=== PATIENT | male | born 1980 | race Caucasian/White ===

== ENCOUNTER 2020-10-31 12:19 | Emergency (ER) | payer BC, SELFPAY ==
--- NOTE | ~2020-10-31 | XR_ITS ---
EXAMINATION: XR CHEST CLINICAL INFORMATION: Palpitations COMPARISON: None TECHNIQUE: Frontal view of the chest was obtained. FINDINGS: Lungs are well expanded. Mild diffuse thickening of bronchial gotti is suspected. A linear, streaky opacity in the right lower lung zone has the appearance of mild atelectasis. No evidence of airspace consolidation, edema or pleural effusion. Cardiac silhouette is normal size and contour. Bones are normal. XR/XR chest 1V IMPRESSION: * Cardiac silhouette is normal. No pulmonary vascular congestion or edema. * Mild thickening of bronchial gotti is suspected. Question if there is any history of reactive airway disease, smoking or asthma.
--- NOTE | 2020-10-31 07:59 | ECG_ITS ---
Test Reason : ELEVATED TROP Blood Pressure : / mmHG Vent. Rate : 081 BPM Atrial Rate : 081 BPM P-R Int : 156 ms QRS Dur : 096 ms QT Int : 384 ms P-R-T Axes : 067 005 025 degrees QTc Int : 446 ms Normal sinus rhythm Nonspecific T wave changes. Borderline ECG When compared with ECG of 31-OCT-2020 18:01, No significant change was found Referred By: Yoel Maria Electronically Signed By:Abilio Zimmerman
--- NOTE | 2020-10-31 12:25 | ECG_ITS ---
Test Reason : TACHYCARDIA Blood Pressure : / mmHG Vent. Rate : 131 BPM Atrial Rate : 131 BPM P-R Int : 138 ms QRS Dur : 088 ms QT Int : 390 ms P-R-T Axes : 066 056 051 degrees QTc Int : 575 ms Sinus tachycardia with Premature atrial complexes Post infarct (cited on or before 31-OCT-2020) Abnormal ECG No previous ECGs available Referred By: Leila Soto Electronically Signed By:Abilio Zimmerman
[2020-10-31] MEDS: LORazepam 2 MG/ML VIAL IVPUSH ×2 (12:29→12:54)
[2020-10-31] MEDS: 0.9 % Sodium Chloride 1,000 ML 999 ML IVCONT (12:30)
[2020-10-31 12:34] VITALS: BP 133/83; PULSE 123; PULSE 160; RESP 18; TEMP 37.3; O2SAT 97; O2SAT 99; BMI 29.0
--- NOTE | 2020-10-31 12:41 | ED.ARRPALP ---
HPI - Arrhythmia/Palpitations General Chief Complaint: ETOH/Substance Use Stated Complaint: tachy after drug use Time Seen by Provider: 10/31/20 12:24 Source: patient and EMS Mode of arrival: EMS Limitations: no limitations History of Present Illness HPI narrative: 40 years old male came in for evaluation of palpitation and feeling anxious. Patient admitted to abuse multiple drugs at friend's house at 04:00 he used meth, GHB, Ritalin (5 mg tablets he use for ADH he crushes and sniff it), use Viagra for recreational purpose. Patient was driving back home when he started to feel anxious, starts to have palpitation, hyperventilation, stiffness of his hands and legs. Arrived to the hospital by EMS. Related Data Allergies Allergy/AdvReac Type Severity Reaction Status Date / Time No Known Allergies Allergy Verified 10/31/20 12:24 Review of Systems Review of Systems: All other systems are reviewed and are negative Constitutional: Reports as per HPI and Reports no additional constitutional complaints Eyes: Reports as per HPI and Reports no additional eye complaints Reports system reviewed and no additional complaints, except as documented Cardiovascular: Reports as per HPI and Reports no additional cardiovascular complaints Respiratory: Reports as per HPI and Reports no additional respiratory complaints Gastrointestinal: Reports as per HPI and Reports no additional gastrointestinal complaints Genitourinary: Reports no additional female genitourinary complaints Musculoskeletal: Reports no additional musculoskeletal complaints Skin/Breast: Reports system reviewed and no additional complaints, except as docu Psychiatric: Reports no additional psychiatric complaints Endocrine: Reports no additional endocrine complaints Hematologic/Lymphatic: Reports no additional hematologic/lymphatic complaints Allergic/Immunologic: Reports no additional allergic/immunologic complaints Reports system reviewed and no additional complaints, except as documented and Reports Abnormal speech present [facility] Social History Social History Alcohol intake: current Alcohol intake frequency: 0-2 drinks per day Alcohol type: beer and wine Smoking Status: Light tobacco smoker Use of substances other than those prescribed or required for medical reasons: Yes Substance Use Type: Marijuana, Methamphetamine, Other and Prescription Drugs Substance Use Type Other:: Ritalin Substance Use Frequency: Daily Advance Directives: No Advance Directives Information Provided: No Physical Exam Vital Signs: Vital Signs: Last Vital Signs Temp 99.1 F 10/31/20 14:12 Pulse 109 H 10/31/20 14:15 Resp 18 10/31/20 14:15 BP 150/90 H 10/31/20 14:15 Pulse Ox 99 10/31/20 14:15 Body Mass Index 29.0 Vital signs have been reviewed as appeared to be correct. Blood pressure normal. Heart rate elevated secondary to anxiety. Respiration rate normal. Temperature normal. Oxygen saturation normal. Appearance: Alert. Oriented X3. No acute distress. Very anxious, hyperventilating Head: Normal external exam. Normocephalic. Atraumatic. No Gamez signs noted. No raccoon eyes noted Eyes: PERRLA. EOMI. Conjunctiva and sclera normal. Eyelids normal. ENT: TM's Normal. Pharynx normal. Uvula midline. Moist mucous membranes. No trismus noted. No drooling noted. No muffled voice noted. Neck: Normal inspection. Neck supple. FROM. No adenopathy. Thyroid Normal. No meningeal signs. No neck mass noted. CVS: Rapid heart rate and rhythm. Heart sound normal. No murmurs noted. Pulses normal throughout. Respiratory: No respiratory distress. Painless inspiration. Breath sounds normal. No wheezes/rales/rhonchi noted. Chest nontender. No accessory muscle usage noted or decreased air movement noted. Abdomen: Soft and nontender. Bowel sounds normal in all 4 quadrants. No distention noted. No organomegaly noted. No visible injury noted. Back: No CVA tenderness. Full range of motion noted. Skin: Skin warm and dry. Normal skin color. Normal skin turgor. No rashes/lesions/lacerations noted. Extremities: No lower extremity edema. Extremities exhibit normal range of motion. Extremities nontender. Neuro: Oriented X 3. No motor deficit. No sensory deficit. Reflexes normal. Course Course Course Narrative: Assessment and plan. 40-year-old male came in after abusing multiple drugs with symptoms of severe anxiety and palpitation. Labs showed hypokalemia that was repleted in the ED, troponin x2 was 3 hours apart are unremarkable, heart rate now is in high 90s. MDM - Arrhythmia/Palpitations Lab Data Attestation: I reviewed the patient's lab results. Result diagrams: 10/31/20 12:42 10/31/20 12:42 Labs: Lab Results 10/31/20 10/31/20 10/31/20 Range/Units 12:41 12:42 12:42 WBC 13.0 H (4.8-10.8) X10*3/uL RBC 5.02 (4.60-5.80) X10*6/uL Hgb 15.7 (14.0-18.0) g/dl Hct 43.4 (42-52) % MCV 86.5 (80-98) fL MCH 31.3 (27.0-33.0) pg MCHC 36.2 H (31.0-36.0) g/dl RDW 12.6 (11.0-16.0) % Plt Count 284 (160-400) X10*3/uL MPV 8.9 L (9.4-12.4) fL Immature Gran % (Auto) 0.2 (0.0-0.4) % Neut % (Auto) 54.9 (45-73) % Lymph % (Auto) 37.8 (20-40) % [place] % (Auto) 6.8 (2-11) % Eos % (Auto) 0.1 (0-4) % Baso % (Auto) 0.2 (0-2) % Lymph # (Auto) 4.9 (1.2-4.9) X10*3/uL [place] # (Auto) 0.9 (0.1-1.2) X10*3/uL Eos # (Auto) 0.0 (0.0-0.4) X10*3/uL Baso # (Auto) 0.0 (0.0-0.2) X10*3/uL Abs Immat Gran (auto) 0.03 (0.00-0.03) X10*3/uL Absolute Neuts (auto) 7.1 (2.0-8.3) X10*3/uL Absolute Nucleated RBC 0.000 (0.0-0.012) X10*3/uL Nucleated RBC % (auto) 0.0 (0.0-0.2) /100WBC Sodium 141 (135-145) mmol/L Potassium 3.2 L (3.3-5.1) mmol/L Chloride 107 (96-108) mmol/L Carbon Dioxide 20 L (22-29) mmol/L Anion Gap 17 (12-20) BUN 17 H (9-16) mg/dL Creatinine 1.08 (0.5-1.4) mg/dL Estim Creat Clear Calc 114.1 Estimated GFR > 60 Random Glucose 123 H (60-115) mg/dL Calcium 10.3 H (8.4-10.2) mg/dL Total Bilirubin 1.9 H (0.0-1.0) mg/dL Direct Bilirubin 0.7 H (0.0-0.5) mg/dL AST 24 (5-37) U/L ALT 35 (0-40) U/L Alkaline Phosphatase 82 (39-117) U/L Troponin I High Sens 4.3 (<3.5-35.0) ng/L B-Natriuretic Peptide < 10 (<100) pg/mL Total Protein 7.4 (6.5-8.0) g/dL Albumin 4.8 (3.5-5.0) g/dL Lipase 18 (8-78) U/L Urine Color Urine Appearance Urine pH (5.0-8.0) Ur Specific [place] (1.005-1.025) Urine Protein (NEG-TRACE) MG/DL Urine Glucose (UA) (NEG) MG/DL Urine Ketones (NEG) MG/DL Urine Blood (NEG) Urine Nitrite (NEG) Ur Leukocyte Esterase (NEG) Urine Opiates Screen (Not Detect) Ur Barbiturates Screen (Not Detect) Ur Phencyclidine Scrn (Not Detect) Ur Amphetamines Screen (Not Detect) U Benzodiazepines Scrn (Not Detect) Urine Cocaine Screen (Not Detect) U Marijuana (THC) Screen (Not Detect) COVID-19 ([facility]) (Negative) COVID-19 Clin Com 10/31/20 10/31/20 10/31/20 Range/Units 12:42 13:17 13:17 WBC (4.8-10.8) X10*3/uL RBC (4.60-5.80) X10*6/uL Hgb (14.0-18.0) g/dl Hct (42-52) % MCV (80-98) fL MCH (27.0-33.0) pg MCHC (31.0-36.0) g/dl RDW (11.0-16.0) % Plt Count (160-400) X10*3/uL MPV (9.4-12.4) fL Immature Gran % (Auto) (0.0-0.4) % Neut % (Auto) (45-73) % Lymph % (Auto) (20-40) % [place] % (Auto) (2-11) % Eos % (Auto) (0-4) % Baso % (Auto) (0-2) % Lymph # (Auto) (1.2-4.9) X10*3/uL [place] # (Auto) (0.1-1.2) X10*3/uL Eos # (Auto) (0.0-0.4) X10*3/uL Baso # (Auto) (0.0-0.2) X10*3/uL Abs Immat Gran (auto) (0.00-0.03) X10*3/uL Absolute Neuts (auto) (2.0-8.3) X10*3/uL Absolute Nucleated RBC (0.0-0.012) X10*3/uL Nucleated RBC % (auto) (0.0-0.2) /100WBC Sodium (135-145) mmol/L Potassium (3.3-5.1) mmol/L Chloride (96-108) mmol/L Carbon Dioxide (22-29) mmol/L Anion Gap (12-20) BUN (9-16) mg/dL Creatinine (0.5-1.4) mg/dL Estim Creat Clear Calc Estimated GFR Random Glucose (60-115) mg/dL Calcium (8.4-10.2) mg/dL Total Bilirubin (0.0-1.0) mg/dL Direct Bilirubin (0.0-0.5) mg/dL AST (5-37) U/L ALT (0-40) U/L Alkaline Phosphatase (39-117) U/L Troponin I High Sens (<3.5-35.0) ng/L B-Natriuretic Peptide (<100) pg/mL Total Protein (6.5-8.0) g/dL Albumin (3.5-5.0) g/dL Lipase (8-78) U/L Urine Color YELLOW Urine Appearance CLEAR Urine pH 7.0 (5.0-8.0) Ur Specific [place] 1.010 (1.005-1.025) Urine Protein NEG (NEG-TRACE) MG/DL Urine Glucose (UA) 100 H (NEG) MG/DL Urine Ketones NEG (NEG) MG/DL Urine Blood NEG (NEG) Urine Nitrite NEG (NEG) Ur Leukocyte Esterase NEG (NEG) Urine Opiates Screen Not Detected (Not Detect) Ur Barbiturates Screen Not Detected (Not Detect) Ur Phencyclidine Scrn Not Detected (Not Detect) Ur Amphetamines Screen POSITIVE H (Not Detect) U Benzodiazepines Scrn Not Detected (Not Detect) Urine Cocaine Screen Not Detected (Not Detect) U Marijuana (THC) Screen Not Detected (Not Detect) COVID-19 ([facility]) Negative (Negative) COVID-19 Clin Com See Note Discharge Plan Discharge Clinical Impression: Multiple substance abuse, Anxiety, Acute hypokalemia Patient Disposition: Home, Self-Care Instructions: Polysubstance Abuse (ED) Referrals: Physician,Unknown [Primary Care Provider] - 2 days
[2020-10-31 12:49] LABS: MANUAL DIFF FLAG NO
[2020-10-31 12:52] LABS: Basophils Percent Auto 0.2 % (0-2); Eosinophils Percent Auto 0.1 % (0-4); Hematocrit 43.4 % (42-52); Hemoglobin 15.7 g/dl (14.0-18.0); Imm Gran Abs Auto 0.03 X10*3/uL (0.00-0.03); Imm Gran Pct Auto 0.2 % (0.0-0.4); Lymphocytes Absolute Auto 4.9 X10*3/uL (1.2-4.9); Lymphocytes Percent Auto 37.8 % (20-40); Mean Corpuscular HGB Conc 36.2 g/dl (31.0-36.0); Mean Corpuscular Hemoglobin 31.3 pg (27.0-33.0); Mean Corpuscular Volume 86.5 fL (80-98); Mean Platelet Volume 8.9 fL (9.4-12.4); Monocytes Absolute Auto 0.9 X10*3/uL (0.1-1.2); Monocytes Percent Auto 6.8 % (2-11); Neutrophils Absolute Auto 7.1 X10*3/uL (2.0-8.3); Neutrophils Percent Auto 54.9 % (45-73); Platelet Count 284 X10*3/uL (160-400); Red Blood Count 5.02 X10*6/uL (4.60-5.80); Red Cell Distribution Width 12.6 % (11.0-16.0)
[2020-10-31 12:54] VITALS: BP 136/97; PULSE 98; RESP 20; O2SAT 99
--- NOTE | 2020-10-31 13:01 | PC.NURSE ---
Pt given 2mg ativan on arrival with good effect. HR trending down. Pt continued to feel anxious and given another 2mg of ativan. IVF running. HR now 115 on monitor. Lab work sent and BP stable at this time. Pt is calming down at this time.
[2020-10-31 13:11] LABS: COVID-19 Test Negative (Negative)
[2020-10-31 13:15] LABS: B Type Natriuretic Peptide < 10 pg/mL (<100); Troponin-I High Sensitivity 4.3 ng/L (<3.5-35.0)
[2020-10-31 13:24] LABS: Alanine Aminotransferase 35 U/L (0-40); Albumin Level 4.8 g/dL (3.5-5.0); Alkaline Phosphatase 82 U/L (39-117); Anion Gap 17 (12-20); Aspartate Amino Transferase 24 U/L (5-37); Bilirubin Direct 0.7 mg/dL (0.0-0.5); Bilirubin Total 1.9 mg/dL (0.0-1.0); Blood Urea Nitrogen 17 mg/dL (9-16); Calcium 10.3 mg/dL (8.4-10.2); Carbon Dioxide 20 mmol/L (22-29); Chloride 107 mmol/L (96-108); Creatinine Clr Calc Pharmacy 114.1; Estimated Glomerular Filt Rate > 60; Glucose Random 123 mg/dL (60-115); Lipase 18 U/L (8-78); Potassium 3.2 mmol/L (3.3-5.1); Sodium 141 mmol/L (135-145); Total Protein 7.4 g/dL (6.5-8.0)
[2020-10-31 13:26] LABS: Glucose Urine UA 100 MG/DL (NEG); Leukocyte Esterase Urine NEG (NEG); Nitrite Urine NEG (NEG); Urine Blood NEG (NEG); Urine Ketones NEG (NEG); Urine Protein NEG (NEG-TRACE)
[2020-10-31 13:27] LABS: Appearance Urine CLEAR; Color Urine YELLOW
[2020-10-31 13:55] LABS: Amphetamine Screen Urine POSITIVE (Not Detect); Barbiturates, Urine Not Detected (Not Detect); Benzodiazepines Screen Urine Not Detected (Not Detect); Cannabinoid Screen Urine Not Detected (Not Detect); Cocaine Screen Urine Not Detected (Not Detect); Opiate Screen Urine Not Detected (Not Detect); Phencyclidine Screen Urine Not Detected (Not Detect)
[2020-10-31 14:12] VITALS: BP 146/90; PULSE 114; RESP 22; TEMP 37.3; O2SAT 94
[2020-10-31 14:15] VITALS: BP 150/90; PULSE 109; RESP 18; O2SAT 99
--- NOTE | 2020-10-31 14:40 | PC.NURSE ---
Pt's HR 110. Pt resting in bed quietly and stating that he feels much better .
[2020-10-31] MEDS: Potassium Chloride Packet 20 MEQ PACKET 40 MEQ PO (14:59)
--- NOTE | 2020-10-31 15:18 | MHC.RECOVSUP ---
Recovery Support note: Patient is a 40 year old Danish speaking male who presented to [facility] due to a rapid heart rate after using amphetamines. Patient reports he used Ritalin, methamphetamine, Viagra and cannabis while hanging out with friends last night. Patient reports he was not planning on using substances however everyone else started to and he ended up using. Discussed the risk involved in combining substances. Patient reports he plans to distance himself from those friends. Patient reports drinking alcohol a couple times a week and using cannabis regularly. Patient denies other substance use and reports he has only used amphetamines a handful of times and that he understands the negative effect it has on the body. Discussed recovery centers with patient as a way to meet new people who are living sober. Patient accepted information on the [facility] and information on NA support groups. Patient reports no questions at this time regarding the resources provided.
[2020-10-31 16:02] VITALS: BP 147/96; PULSE 102; RESP 20; TEMP 36.9; O2SAT 96
[2020-10-31 16:18] LABS: Troponin-I High Sensitivity 13.3 ng/L (<3.5-35.0)
--- NOTE | 2020-10-31 17:54 | ECG_ITS ---
Test Reason : ELEVATED TROP Blood Pressure : / mmHG Vent. Rate : 083 BPM Atrial Rate : 083 BPM P-R Int : 156 ms QRS Dur : 096 ms QT Int : 378 ms P-R-T Axes : 069 009 026 degrees QTc Int : 444 ms Normal sinus rhythm with sinus arrhythmia Normal ECG When compared with ECG of 31-OCT-2020 12:37, Vent. rate has decreased BY [address] depression improved in anterior leads Referred By: Leila Soto Electronically Signed By:LIS WHITAKER
[2020-10-31 18:05] VITALS: BP 145/91; PULSE 89; RESP 18; TEMP 37.1; O2SAT 97
[2020-10-31 18:46] LABS: Troponin-I High Sensitivity 11.6 ng/L (<3.5-35.0)
== END 2020-10-31 19:14 | disposition home or self-care (01) ==
PROVIDERS: Emergency Medicine; Emergency Provider Emergency Medicine
DX: F19.10 Other psychoactive substance abuse, uncomplicated (principal); F41.9 Anxiety disorder, unspecified; E87.6 Hypokalemia; R00.2 Palpitations; Z20.822 Contact with and (suspected) exposure to COVID-19; F17.210 Nicotine dependence, cigarettes, uncomplicated
CPT/HCPCS: 36415; 71045; 80048; 80076; 80307; 81003; 83690; 83880; 84484; 85025; 87635; 93005; 96361; 96374; 99284; J2060